=== PATIENT | male | born 1965 | race Two or more races ===

== ENCOUNTER 2023-10-25 05:50 | Emergency (ER) | payer MEDICAID, OTHER ==
[~2023-10-25] VITALS: Ht 175.3 cm; Wt 103.6 kg
[2023-10-25 07:40] VITALS: BP 166/90; PULSE 99; RESP 17; TEMP 98.5; O2SAT 97
[2023-10-25] MEDS ORDERED: IBUP1TAB5 PO (07:42)
[2023-10-25] MEDS ORDERED: BACDST PO (07:42)
== END 2023-10-25 07:43 | disposition home or self-care (01) ==
LOC: ER 05:50
DX: N49.2 Inflammatory disorders of scrotum (principal)